=== PATIENT | female | born 1970 | race Caucasian/White ===

== ENCOUNTER 2017-01-23 13:21 | Emergency (ER) | payer OTHER ==
[~2017-01-23] VITALS: Ht 162.6 cm; Wt 127.0 kg
--- NOTE | 2017-01-23 13:29 | ED SYNCOPE COMPLAINT ---
History of Present Illness General Chief Complaint: Syncope and Near-Syncope Stated Complaint: PT IS FEELING VERY DIZZY Source: patient, family Exam Limitations: no limitations Allergies Coded Allergies: guaifenesin (From MUCINEX) (GIDDY 01/23/17) Triage Nurses Notes Reviewed? yes Timing: single episode today Associated Symptoms: DIZZINESS : No Patient currently breastfeeds: No HPI: This is a 46 old female with history of diabetes, single kidney, history of superficial thrombus phlebitis who presents to the ER chief complaint of sudden onset of dizziness this morning. She states she got out of bed to go to work had a hard time walking because the room was spinning. Complains of a mild headache. Dizziness is worse with moving her head and lying down. Denies any tinnitus or pressure in her ears. No blurred vision. No chest pain or shortness of breath. Her blood sugar at home was over 300. She's been noncompliant with her good breath for the past because she thought that perhaps 30 diabetes was going away. She called Dr. George who advised her to come to the ER as she didn't feel her symptoms were secondary to a blood sugar of 341. No abdominal pain nausea or vomiting. She denies any chance of . She states that the cycle method she doesn't take anything else prescription. She is an occasional drinker does not cigarette smoke and uses occasional marijuana for PTSD. Positive family history of brain tumors as well as PEs. Patient states she was tested many years ago for clotting factor deficiencies and was negative. She has a history of superficial thrombophlebitis while being on OCPs. Trauma. Denies any headaches prior to today. She endorses frequent urination and dry mouth. (ROSA HERRERA,CAREN) Vital Signs & Intake/Output Vital Signs & Intake/Output Vital Signs Date Time Temp Pulse Resp B/P B/P Pulse O2 O2 Flow FiO2 Mean Ox Delivery Rate 01/23 1810 97.7 81 20 144/65 98 Room Air ED Intake and Output 01/24 0000 01/23 1200 Intake Total 1000 Output Total 300 Balance 700 Intake, IV 1000 Output, Urine 300 Patient 280 lb Weight Weight Estimated Measurement Method Reconcile Medications [MARIJUANA] (Reported) Meclizine HCl 12.5 MG TABLET 1 TAB PO TID PRN DIZZINESS Metformin HCl (Glumetza) (Unknown Strength) [id number] (Unknown Dose) DAILY DM (Reported) Ondansetron (Zofran Odt) 4 MG TAB.RAPDIS 1 TAB PO Q6 PRN NAUSEA (ADARSH HERRERA,SANDRA Rahman) Past History Travel History Traveled to [place] past 21 day No Medical History Any Pertinent Medical History? see below for history Renal: oNE KIDNEY Psychiatric: PTSD Endocrine: diabetes Surgical History Surgical History: cholecystectomy Psychosocial History What is your primary language Yoruba Tobacco Use: Quit >30 days ago ETOH Use: denies use Illicit Drug Use: marijuana Family History Comment: Grandfather with GBM Brother of PE Brother with brain CA Hx Contributory? Yes (CAREN LEE MD) Review of Systems Review of Systems Constitutional: Denies: chills, fever, malaise, weakness. EENTM: Reports: no symptoms. Respiratory: Denies: cough, short of breath, sputum production. Cardiovascular: Denies: chest pain. GI: Reports: nausea. Denies: abdominal pain, vomiting. Genitourinary: Reports: no symptoms. Musculoskeletal: Denies: back pain. Skin: Reports: see HPI, erythema (UNDER LEFT BREAST). Denies: rash. Neurological/Psychological: Reports: anxiety, headache. Denies: confusion, numbness. All Other Systems: Reviewed and Negative (CAREN LEE MD) Physical Exam Physical Exam General Appearance: well developed/nourished, alert, awake, mild distress, moderate distress, obese Head: atraumatic, normal appearance Eyes: Bilateral: normal appearance, PERRL, EOMI, other (NYSTAGMUS HORIZONTAL). Ears, Nose, Throat: normal pharynx, normal ENT inspection, hearing grossly normal Neck: normal inspection, supple, full range of motion Respiratory: normal breath sounds, chest non-tender, no respiratory distress Cardiovascular: regular rate/rhythm Gastrointestinal: soft, non-tender Back: normal inspection, normal range of motion Extremities: normal inspection, VARICOSE VEINS Psychiatric: awake, alert, oriented x 3 Cranial Nerves: normal hearing, normal speech Coordination/Gait: ATAXIC GAIT Motor/Sensory: no motor/sensory deficits Core Measures ACS in differential dx? No CVA/TIA Diagnosis: No Severe Sepsis Present: No Septic Shock Present: No (CAREN LEE MD) Progress Differential Diagnosis: hyperglycemia, DKA, hyponatremia, hypokalemia, volume depletion, vertigo, intracranial mass Diagnostic Imaging: Viewed by Me: CT Scan. Discussed w/RAD: CT Scan. Radiology Impression: PATIENT: CHAYA GRAY PRESENT AGE: 46 PATIENT ACCOUNT NO: [id number] : 72 LOCATION: [facility] ORDERING PHYSICIAN: CAREN LEE MD SERVICE DATE: 01/23/17663 EXAM TYPE: CAT - CT HEAD WO IV CONTRAST EXAMINATION: CT HEAD WITHOUT CONTRAST CLINICAL INFORMATION: Headache and dizziness. Evaluate for mass/bleed. COMPARISON: None TECHNIQUE: Contiguous axial imaging was performed from the skull base to vertex without intravenous administration of contrast. DLP: 553 mGy-cm FINDINGS: The brain parenchyma has normal attenuation with well-preserved mora-white matter differentiation. No evidence of an acute major vascular territory infarction, hemorrhage, extra-axial fluid collection, mass, focal mass effect or midline shift. The ventricles, sulci and basilar cisterns are unremarkable; no hydrocephalus. The calvarium is intact and the visualized paranasal sinuses, mastoid air cells and middle ear cavities are clear. The examined portions of the orbits, globes and temporomandibular joints are unremarkable. IMPRESSION: No evidence of intracranial mass or hemorrhage. No acute intracranial pathology. DICTATED BY: ZENY COLEMAN MD DATE/TIME DICTATED:01/23/171700 PROJECT SPECIALIST:CARLOS DATE/TIME TRANSCRIBED:01/23/171700 CONFIDENTIAL, DO NOT COPY WITHOUT APPROPRIATE AUTHORIZATION. <Electronically signed in Other Vendor System> SIGNED BY: ZENY COLEMAN MD 01/23/171707 Initial ED EKG: NSR, INVERTED T WAVE III Hand-Off Endorsed To: SANDRA ALTAMIRANO MD Endorsed Time: 1999 Pending: labs (ROSA HERRERA,CAREN) Plan of Care: Orders Procedure Date/time Status Consistent Carbohydrate 1 01/24 B Active BASIC METABOLIC PANEL 01/23 171 Complete Current Medications Sig/Jeremy Start time Last Medication Dose Stop Time Status Admin Metformin HCl 500 MG ONCE ONE 01/23 1830 CAN (Glucophage) 01/23 183 Laboratory Tests 01/23/17 2000: Anion Gap 11, Estimated GFR > 60, BUN/Creatinine Ratio 18.6, Glucose 300 H, Calcium 8.5 Comments: 01/23/2017 8:50:30 PM I have reviewed this patient's repeat BMP and her potassium and anion gap have improved. I do not feel this patient is in significant DKA and is stable for discharge and outpatient management of her hyperglycemia. (ADARSH HERRERA,SANDRA Rahman) Departure Departure Disposition: STILL A PATIENT Condition: Stable Clinical Impression Primary Impression: Hyperglycemia Secondary Impressions: Hyponatremia, Vertigo Referrals: ADAL HERRERA,LON BEAN MD,FREDERIC (PCP/Family) Additional Instructions: Please start taking your Glumetza regularly and monitor blood sugar at home. Take the Zofran and meclizine as needed. Follow-up with Dr. george in the office. Return to the ER for any changing or worsening symptoms. Departure Forms: Customer Survey General Discharge Information Prescriptions: Current Visit Scripts Ondansetron (Zofran Odt) 1 TAB PO Q6 PRN NAUSEA #20 TAB Meclizine HCl 1 TAB PO TID PRN DIZZINESS #30 TAB (ROSA HERRERA,CAREN) (ROSA HERRERA,CAREN)
[2017-01-23] MEDS ORDERED: GLUMETZA500 M1 (13:42)
[2017-01-23] MEDS ORDERED: MARIJUANA (14:12)
[2017-01-23 14:56] LABS: ABSOLUTE BASOPHIL COUNT 0 /CUMM (0.0-0.2); ABSOLUTE EOSINOPHIL COUNT 0 /CUMM (0.0-0.7); ABSOLUTE GRANULOCYTE CT 10.2 /CUMM (1.4-6.5); ABSOLUTE LYMPH COUNT 0.9 /CUMM (1.2-3.4); ABSOLUTE MONOCYTE COUNT 0.3 /CUMM (0.10-0.60); BASOPHIL % 0.2 % (0.0-2.0); EOSINOPHIL % 0.3 % (0-5); GRANULOCYTE % 88.4 % (42.2-75.2); HEMATOCRIT 45.1 % (37-47); MEAN CORPUSCULAR HGB 27.7 PG (27.0-31.0); MEAN CORPUSCULAR HGB CONC 34.7 G/DL (33.0-37.0); MEAN CORPUSCULAR VOLUME 79.8 FL (81.0-99.0); PLATELET COUNT 252 /CUMM (130-400); RBC DISTRIBUTION WIDTH 12.7 % (11.5-14.5); RED BLOOD CELL CT 5.65 /CUMM (4.20-5.40); WHITE BLOOD CELL COUNT 11.6 /CUMM (4.8-10.8)
--- NOTE | 2017-01-23 17:08 | CT SCAN REPORT ---
EXAMINATION: CT HEAD WITHOUT CONTRAST CLINICAL INFORMATION: Headache and dizziness. Evaluate for mass/bleed. COMPARISON: None TECHNIQUE: Contiguous axial imaging was performed from the skull base to vertex without intravenous administration of contrast. DLP: 553 mGy-cm FINDINGS: The brain parenchyma has normal attenuation with well-preserved mora-white matter differentiation. No evidence of an acute major vascular territory infarction, hemorrhage, extra-axial fluid collection, mass, focal mass effect or midline shift. The ventricles, sulci and basilar cisterns are unremarkable; no hydrocephalus. The calvarium is intact and the visualized paranasal sinuses, mastoid air cells and middle ear cavities are clear. The examined portions of the orbits, globes and temporomandibular joints are unremarkable. IMPRESSION: No evidence of intracranial mass or hemorrhage. No acute intracranial pathology.
[2017-01-23 18:10] VITALS: BP 144/65
[2017-01-23] MEDS ORDERED: ZOFRAN ODT4 M1 PO (19:17)
[2017-01-23] MEDS ORDERED: MECLIZINE HCL12.5 M1 PO (19:17)
== END 2017-01-23 20:58 ==
LOC: ERH 13:21
PROVIDERS: Emergency Medicine
DX: E11.65 Type 2 diabetes mellitus with hyperglycemia (principal); E87.1 Hypo-osmolality and hyponatremia; R42 Dizziness and giddiness; Z79.84 Long term (current) use of oral hypoglycemic drugs
CPT/HCPCS: 81001; 93005; 93010; 96361; 96374; 96375; 99291; J2405; J3360